=== PATIENT | female | born 1945 ===

== ENCOUNTER → 2020-12-27 | Outpatient (CLI) | payer MEDICARE, BC | LOC: RAD 09:00 | DX: R11.0 Nausea (principal); R10.13 Epigastric pain | CPT/HCPCS: 74250 ==

== ENCOUNTER → 2021-01-03 | Outpatient (CLI) | payer MEDICARE, BC | LOC: NM 08:52 | DX: R11.0 Nausea (principal); R10.13 Epigastric pain | CPT/HCPCS: 78264; A9541 ==